=== PATIENT | male | born 1980 | race Two or more races ===

== ENCOUNTER 2019-03-28 17:53 | Emergency (ER) | payer SELFPAY ==
--- NOTE | 2019-03-28 18:00 | NUR ---
CALLED TO TRIAGE, NO ANSWER
--- NOTE | 2019-03-28 18:25 | NUR ---
CALLED TO TRIAGE,NO ANSWER
== END 2019-03-28 18:26 | disposition left against medical advice (07) ==
LOC: ER 18:01
DX: Z53.21 Procedure and treatment not carried out due to patient leaving prior to being seen by health care provider (principal)